=== PATIENT | female | born 1950 | race Caucasian/White ===

== ENCOUNTER 2019-09-04 03:16 | Inpatient (IN) ==
[2019-08-28 10:47] LABS: HEMATOCRIT 43.5 % (37.0-47.0); HEMOGLOBIN 14.8 g/dL (12.0-16.0); MCH 32.2 PG (27-31); MCV 94.6 FL (81-99); MPV 10.2 FL (7.4-10.4); RBC 4.6 XMIL (4.2-5.4); RDW 12.6 % (11.5-14.5); WBC 8.08 X1000 (4.8-10.8)
[2019-08-28 11:10] LABS: AGAP 11; BUN 13 mg/dL (8-22); CALCIUM 10.2 mg/dL (8.8-10.2); CHLORIDE 103 mmol/L (98-107); COSMO 285; CREATININE 0.7 mg/dL (0.5-0.9); ESTIMATED GFR > 60; GLUCOSE 96 mg/dL (70-104); POTASSIUM 4.3 mmol/L (3.5-5.1); SODIUM 143 mmol/L (136-145); TCO2 29 mmol/L (25-35)
--- NOTE | 2019-08-28 11:49 | EKG Report ---
Test Performed on : 08/28/2019 10:21:26 AM Test Reason : PAT Blood Pressure : / mmHG Vent. Rate : 073 BPM Atrial Rate : 073 BPM P-R Int : 152 ms QRS Dur : 074 ms QT Int : 378 ms P-R-T Axes : 056 060 052 degrees QTc Int : 416 ms Normal sinus rhythm. Normal ECG No previous ECGs available Confirmed by Kelsey ROMERO, [place] Childress ([id number]) on 08/29/2019 11:05:59 PM
[2019-09-04] MEDS ORDERED: XYLOCAINE-MPF 4% ONE (06:29)
[2019-09-04] MEDS ORDERED: ZOFRAN ONE (06:45)
[2019-09-04] MEDS ORDERED: NORCURON ONE (06:45)
[2019-09-04] MEDS ORDERED: QUELICIN (DOSE) ONE ×2 (06:45→09:33)
[2019-09-04] MEDS ORDERED: SODIUM CHLORIDE 0.9% 10 ML ONE ×2 (06:45→09:04)
[2019-09-04] MEDS ORDERED: DECADRON ONE ×2 (06:45→08:59)
[2019-09-04] MEDS ORDERED: ROBINUL ONE ×3 (06:45→06:47)
[2019-09-04] MEDS ORDERED: XYLOCAINE-MPF 2% ONE (06:45)
[2019-09-04] MEDS ORDERED: FENTANYL ONE (06:45)
[2019-09-04] MEDS ORDERED: DIPRIVAN 1% ONE (06:45)
[2019-09-04] MEDS ORDERED: ENTEREG ONE (06:46)
[2019-09-04] MEDS ORDERED: REGLAN ONE (06:46)
[2019-09-04] MEDS ORDERED: PEPCID ONE (06:46)
[2019-09-04] MEDS ORDERED: VALIUM ONE (06:47)
[2019-09-04] MEDS ORDERED: INVANZ 1 GM/NS 1 GM/50 ML IVPB ONE (06:47)
[2019-09-04] MEDS ORDERED: LR 1,000 ML ONE ×2 (06:47→07:04)
[2019-09-04] MEDS ORDERED: SENSORCAINE 0.5%-EPI 1:200,000 ONE (07:04)
[2019-09-04] MEDS ORDERED: VERSED ONE ×2 (07:15→07:22)
[2019-09-04] MEDS ORDERED: KETAMINE ONE (07:15)
[2019-09-04] MEDS ORDERED: NEO-SYNEPHRINE 1% NASAL SPRAY ONE (07:27)
[2019-09-04] MEDS ORDERED: NEO-SYNEPHRINE ONE (09:04)
[2019-09-04] MEDS ORDERED: NEOSTIGMINE ONE (09:22)
[2019-09-04] MEDS ORDERED: OFIRMEV 1000 MG/ISOTONIC SOLN 1,000 MG/100 ML BOTTLE ONE (10:45)
[2019-09-04] MEDS ORDERED: NS 1,000 ML ONE (10:45)
[2019-09-04 10:49] LABS: URINE SOURCE CATH
--- NOTE | 2019-09-04 11:07 | OPERATIVE NOTE ---
PROCEDURE DATE: 09/04/2019 PROCEDURE PERFORMED: Laparoscopic assisted right colectomy. SURGEON: Cruz Morales MD. ASSISTANTS: Humera and Mary Jo. PREOPERATIVE DIAGNOSIS: Villous adenoma right colon. POSTOPERATIVE DIAGNOSIS: Villous adenoma right colon. DESCRIPTION OF PROCEDURE: Satisfactory general endotracheal anesthesia was achieved. The abdomen was prepped and draped in a sterile fashion. We anesthetized the skin below the umbilicus, made a vertical incision, dissected down the fascia scored the fascia, and introduced 11 trocar. We insufflated through this trocar. Under direct visualization, we used 11 trocar in the mid epigastrium and a 5 trocar in the mid hypogastrium, and a 5 trocar in the right lower quadrant. We placed the patient in Trendelenburg, and turned her to the left. We then used the LigaSure to incised the white line of Toldt. Then, we progressed caudad to free up the terminal ilium and mobilized the terminal ilium. We then placed the patient in reverse Trendelenburg and then again continued along the white line of Toldt to the hepatic flexure. We then changed our laparoscope to the mid epigastric trocar, and then we mobilized the hepatic flexure, and brought the dissection all the way past the exposure of the duodenum. We then mobilized the right colon out of the retroperitoneum so that it would come on to the midline. We felt that it was adequately mobile at this point. Hemostasis was satisfactory. I then desufflated, and removed our trocars. We then marked the skin transversely in the right mid abdomen. We anesthetized the skin with 0.25 Marcaine with epinephrine, incised the skin, and carried our incision through the subcutaneous tissue. We incised the external oblique aponeurosis, and the external oblique muscle. We spread the internal oblique muscle, spread the transversus muscle, and then opened the peritoneum. We then placed a ring to keep the subcutaneous tissue protected. We delivered the right colon then out of the abdominal cavity with some of the terminal ilium out, and the right colon all the way to the transverse colon. We cleaned off the ileum and then stapled it with a MILENA 80 blue stapler. We cleaned off the transverse colon, and did the same thing with the MILENA 80. We then divided the mesentery with the ligature. We then were able to hand off the specimen with the ink portion right in the mid aspect of the specimen. The end of the ilium was then approximated [id number] to the transverse colon. We placed a 3-0 silk to keep those side by side. We then cut off the corners of the respective ends of the bowel, and introduced a MILENA 80 again, and did a [id number] stapled anastomosis. The open end of the bowel was then grasped with Allis and a TA-60 blue stapler was used to staple off the open end of the bowel. We then inverted the staple line with interrupted 3-0 silks in a Lembert fashion. We placed a 3-0 silk at the opposite end of the staple line as well. We changed gloves at this point, and rid ourselves of the contaminated instruments. We then also placed some 3-0 silks in the mesentery to approximate it once again. We reduced the anastomosis back into the abdominal cavity. We removed the wound protector. We then closed the peritoneum with a 2-0 Polysorb running. We allowed the transversus to reapproximate. We reapproximated the internal oblique with a running 2-0 Polysorb. We reapproximated the external oblique aponeurosis and fascia with 0 Polysorb [id number] stitches. We placed 3-0 Polysorb in the subcutaneous tissue. We reinserted our 11 trocars and two 5 trocars, and re-insufflated. We looked inside. The anastomosis was identified. Hemostasis was satisfactory. We were satisfied with the anastomosis. The stomach had been emptied with an OG tube. No other abnormalities were identified. We used a Norm-Misty wound closure for the epigastric trocar site. We desufflated, and removed our other trocars. We closed the fascia below the umbilicus under direct visualization with a 2-0 Polysorb fascial stitch. The skin was closed at each incision with 4-0 Polysorb subcuticular stitches. Sterile OpSite's were applied. She tolerated it well, and was sent to the recovery room in satisfactory condition. cc: MD Dr. Cecilio Sesay
[2019-09-04 11:12] LABS: BILIRUBIN URINE NEGATIVE (NEGATIVE); BLOOD URINE TRACE (NEGATIVE); COLOR STRAW; GLUCOSE URINE NEGATIVE (NEGATIVE); KETONE URINE NEGATIVE (NEGATIVE); LEUKOCYTES URINE NEGATIVE (NEGATIVE); NITRITE URINE NEGATIVE (NEGATIVE); PH URINE 6.5; PROTEIN URINE NEGATIVE (NEGATIVE); SP GRAVITY URINE 1.003; TURBIDITY URINE CLEAR (CLEAR); UR EPITHELIAL CELLS <10 /HPF (<10); URINE BACTERIA NEGATIVE /HPF; URINE RBC <10 /HPF (<10); URINE WBC <10 /HPF (<10); UROBILINOGEN URINE NORMAL (NORMAL)
[2019-09-04] MEDS ORDERED: NS 1,000 ML IV SCH (11:23)
[2019-09-04] MEDS: BUPRENEX IV PRN (16:35)
[2019-09-04] MEDS: OFIRMEV 1000 MG/ISOTONIC SOLN 1,000 MG/100 ML BOTTLE IV SCH ×2 (16:37→22:19)
[2019-09-04] MEDS: LOVENOX SUBQ SCH (16:37)
--- NOTE | 2019-09-04 21:17 | GENERAL SURGERY PROGRESS NOTE ---
DATE: 09/04/2019 It is 4:25 in the afternoon. She is doing generally well. She is comfortable. Her bandages are dry. Hemodynamics are good. She denies nausea. We will allow her to have ice chips. cc: Cruz Morales MD
[2019-09-04] MEDS: PERIDEX MT SCH (22:19)
[2019-09-05] MEDS: OFIRMEV 1000 MG/ISOTONIC SOLN 1,000 MG/100 ML BOTTLE IV SCH ×2 (05:09→12:37)
[2019-09-05 06:43] LABS: HEMATOCRIT 35.8 % (37.0-47.0); HEMOGLOBIN 12.2 g/dL (12.0-16.0); LYMPH# 0.43 X1000 (1.2-3.4); LYMPH% 3.4 % (20.5-51.1); MCH 32.5 PG (27-31); MCHC 34.1 g/dL (33-37); MCV 95.5 FL (81-99); MONO# 0.51 X1000 (0.11-0.59); MPV 11.1 FL (7.4-10.4); NEUT# 11.66 X1000 (1.4-6.5); NEUT% 92.6 % (42.2-75.2); PLT 236 X1000 (130-400); RBC 3.75 XMIL (4.2-5.4); RDW 12.8 % (11.5-14.5)
[2019-09-05 06:51] LABS: AGAP 9; BUN 9 mg/dL (8-22); CALCIUM 8.4 mg/dL (8.8-10.2); CHLORIDE 106 mmol/L (98-107); COSMO 277; CREATININE 0.5 mg/dL (0.5-0.9); ESTIMATED GFR > 60; GLUCOSE 137 mg/dL (70-104); POTASSIUM 4.1 mmol/L (3.5-5.1); SODIUM 138 mmol/L (136-145); TCO2 23 mmol/L (25-35)
[2019-09-05] MEDS ORDERED: NS 1,000 ML IV SCH (07:49)
--- NOTE | 2019-09-05 08:37 | GENERAL SURGERY PROGRESS NOTE ---
DATE: 09/05/2019 She is postoperative day 1 after laparoscopic assisted right colectomy. She is afebrile, heart rate 84, blood pressure 104/49. Her pain is negligible. She denies nausea. Today we will remove her Quinn catheter, give her clear liquids and decrease her IV rate. She is to get up. cc: Cruz Morales MD
[2019-09-05] MEDS: PERIDEX MT SCH ×2 (09:40→21:09)
[2019-09-05] MEDS: COZAAR PO SCH (09:40)
[2019-09-05] MEDS: LOVENOX SUBQ SCH (12:37)
[2019-09-05] MEDS: ULTRAM PO PRN (21:07)
[2019-09-05] MEDS: PRAVACHOL PO SCH (21:08)
[2019-09-06] MEDS: COZAAR PO SCH (10:14)
[2019-09-06] MEDS: PERIDEX MT SCH ×2 (10:15→20:36)
[2019-09-06] MEDS: NS 1,000 ML IV SCH (13:13)
[2019-09-06] MEDS: LOVENOX SUBQ SCH (13:59)
[2019-09-06] MEDS: ULTRAM PO PRN (20:35)
[2019-09-06] MEDS: PRAVACHOL PO SCH (20:36)
[2019-09-07] MEDS: BUPRENEX IV PRN (08:51)
[2019-09-07] MEDS: PERIDEX MT SCH ×2 (08:52→21:02)
[2019-09-07] MEDS: COZAAR PO SCH ×2 (08:52→08:55)
[2019-09-07] MEDS: ZOFRAN IV PRN (13:00)
--- NOTE | 2019-09-07 13:21 | Diag Imaging Result Doc PS360 ---
FLAT/UPRIGHT ABD/1 VIEW CHEST - 09/07/2019 INDICATION: nausea post op TECHNIQUE: COMPARISON: None FINDINGS: The chest is clear. There are surgical suture lines in the right side of the abdomen. There are several abnormally gas-distended loops of bowel. Some of these in the epigastrium may well be small bowel although these are indeterminate. If so, this would be highly obstructed. There are air-fluid levels on the upright. No free air. There is some trace rectal and distal colon gas. IMPRESSION: Findings suspicious for high-grade small bowel obstruction. Electronically signed by Nj Fraga 09/07/2019 1:18 PM
[2019-09-07] MEDS: LOVENOX SUBQ SCH (13:39)
--- NOTE | 2019-09-07 15:21 | GENERAL SURGERY PROGRESS NOTE ---
DATE: 09/07/2019 SUBJECTIVE: Ms. Rich is somewhat nauseated today. She has had a little bit of bloody bowel movements, passed a little bit of flatus, but does report a cramp in her abdomen in addition to some nausea. She is not really hungry. OBJECTIVE: Vital signs: She is afebrile, heart rate 77, blood pressure 97/41. Abdomen: Mildly distended and tympanitic. PLAN: Is to get a flat and upright of her abdomen. I do not think she is quite ready for discharge. We will get her something for nausea. cc: Cruz Morales MD
[2019-09-07] MEDS: PRAVACHOL PO SCH (21:02)
[2019-09-07] MEDS: NS 1,000 ML IV SCH (21:02)
[2019-09-07] MEDS: ULTRAM PO PRN (21:05)
[2019-09-08 07:27] LABS: BASO# 0.02 X1000 (0.0-0.2); BASO% 0.2 % (0.0-0.8); EOS# 0.15 X1000 (0.0-0.7); EOS% 1.3 % (0.0-10.0); HEMATOCRIT 36.8 % (37.0-47.0); HEMOGLOBIN 12.3 g/dL (12.0-16.0); LYMPH# 1.64 X1000 (1.2-3.4); MCH 32.3 PG (27-31); MCHC 33.4 g/dL (33-37); MCV 96.6 FL (81-99); MONO# 0.99 X1000 (0.11-0.59); MONO% 8.4 % (1.7-9.3); MPV 10.8 FL (7.4-10.4); NEUT# 8.93 X1000 (1.4-6.5); NEUT% 76.1 % (42.2-75.2); PLT 301 X1000 (130-400); RBC 3.81 XMIL (4.2-5.4); RDW 13.3 % (11.5-14.5); WBC 11.73 X1000 (4.8-10.8)
--- NOTE | 2019-09-08 08:15 | Diag Imaging Result Doc PS360 ---
EXAM: FLAT/UPRIGHT ABD/1 VIEW CHEST 09/08/2019 HISTORY: post op n and v TECHNIQUE: Flat and upright abdomen with PA chest COMMENT: There is colonic and small bowel gas with multiple air-fluid levels. Some gas is seen in the rectum. There are suture lines in the right abdomen. The stomach is not distended. There is some atelectasis in the left lower lobe and there may be small bilateral pleural effusions. Compared to the previous chest radiograph of 09/07/2019 the pleural fluid collection on the right appears larger. The atelectasis was present previously. The degree of gaseous distention of the colon has diminished since the previous study. IMPRESSION: Improved ileus. Worsened right pleural effusion. Electronically signed by Rigoberto Ndiaye 09/08/2019 8:12 AM
[2019-09-08] MEDS: NS 1,000 ML IV SCH ×3 (08:46→21:49)
[2019-09-08] MEDS: ZOFRAN IV PRN (08:46)
[2019-09-08] MEDS: ULTRAM PO PRN ×2 (08:46→16:38)
[2019-09-08] MEDS: PERIDEX MT SCH ×2 (08:47→21:48)
[2019-09-08] MEDS: COZAAR PO SCH (08:47)
--- NOTE | 2019-09-08 10:59 | GENERAL SURGERY PROGRESS NOTE ---
DATE: 09/08/2019 SUBJECTIVE: Ms. Rich had a little bloody bowel movement. Her hemoglobin is stable, however hemodynamics are stable. Her nausea is better today. Her x-ray does not really show significant improvement except there is air in the colon now. PLAN: The plan will be to increase her IV rate to 80. Will recheck her hemoglobin tomorrow. I will stop her Lovenox. Will advance her diet and will see when she is ready to go home over the weekend possibly. I have discussed with her. Also, her pathology has come back as malignant but her nodes were negative, and I discussed that with her son. cc: Cruz Morales MD
[2019-09-08] MEDS: PRAVACHOL PO SCH (21:48)
[2019-09-09 07:21] LABS: BASO# 0.02 X1000 (0.0-0.2); BASO% 0.3 % (0.0-0.8); EOS# 0.15 X1000 (0.0-0.7); EOS% 2.1 % (0.0-10.0); HEMATOCRIT 35.7 % (37.0-47.0); HEMOGLOBIN 11.5 g/dL (12.0-16.0); IMM GRAN# 0.05 X1000 (0.0-0.04); IMM GRAN% 0.7 % (0.0-0.5); LYMPH# 1.78 X1000 (1.2-3.4); MCH 31.3 PG (27-31); MCHC 32.2 g/dL (33-37); MONO# 0.62 X1000 (0.11-0.59); MONO% 8.7 % (1.7-9.3); NEUT# 4.51 X1000 (1.4-6.5); NEUT% 63.2 % (42.2-75.2); PLT 278 X1000 (130-400); RBC 3.68 XMIL (4.2-5.4); WBC 7.13 X1000 (4.8-10.8)
[2019-09-09 07:39] LABS: AGAP 9; BUN 8 mg/dL (8-22); CALCIUM 7.5 mg/dL (8.8-10.2); CHLORIDE 108 mmol/L (98-107); COSMO 282; CREATININE 0.5 mg/dL (0.5-0.9); ESTIMATED GFR > 60; GLUCOSE 114 mg/dL (70-104); POTASSIUM 4.1 mmol/L (3.5-5.1); SODIUM 142 mmol/L (136-145); TCO2 25 mmol/L (25-35)
--- NOTE | 2019-09-09 08:07 | Diag Imaging Result Doc PS360 ---
EXAM: FLAT/UPRIGHT ABD/1 VIEW CHEST HISTORY: ileus TECHNIQUE: Flat and upright with chest, four views COMPARISON: 09/08/2019 FINDINGS: Tiny pleural effusions. No cardiomegaly. No consolidation. No free air beneath the diaphragm. There are overly distended small bowel loops filled with air. The diameter approaches 4 cm. There are sutures in the right lower quadrant. Air is present in the transverse colon. No organomegaly. IMPRESSION: Ileus versus partial distal obstruction. No interval improvement. Electronically signed by Franklin Shaw 09/09/2019 8:05 AM
[2019-09-09] MEDS: COZAAR PO SCH (09:53)
[2019-09-09] MEDS: PERIDEX MT SCH (09:53)
[2019-09-09] MEDS: NS 1,000 ML IV SCH (09:56)
[2019-09-09 11:22] VITALS: BP 111/57
--- NOTE | 2019-09-09 12:15 | GENERAL SURGERY PROGRESS NOTE ---
DATE: 09/09/2019 SUBJECTIVE: The patient is doing well. She has had lots of flatus and some stool. She is tolerating her diet. She has had no significant nausea, vomiting, chest pain, shortness of breath or abdominal pain. OBJECTIVE: She is afebrile. Vital signs are stable. In general, she is awake, alert, and oriented x3. No acute distress. GI is soft and nondistended. Good bowel sounds. Incision is clean, dry, and intact. LABORATORY: Hemoglobin 11 and hematocrit 35. ASSESSMENT/PLAN: A 69-year-old female status post laparoscopic right hemicolectomy. She is doing well. We will discharge her home. Of note, I did review her abdominal x-ray which shows some dilated small bowel. However, there is a lot of gas in the distal colon and rectum. Clinically, she is feeling better. She will follow up with Dr. Morales this week. cc: MD Cruz Jauregui MD
--- NOTE | 2019-09-13 10:42 | DISCHARGE SUMMARY ---
ADMISSION DATE: 09/04/2019 DISCHARGE DATE: 09/09/2019 PRIMARY DISCHARGE DIAGNOSIS: Carcinoma of the right colon, extending into the muscularis, but not into the subcutaneous fat. Thirteen lymph nodes were negative. This is stage II. PRIMARY PROCEDURE: Laparoscopic-assisted right colectomy. HISTORY: This is a pleasant, 69-year-old, who had a lesion noted in her right colon on a routine colonoscopy. It appeared to be a villous lesion. She was admitted for resection. Following her outpatient prep, she came in on 09/04/2019 and underwent the above-noted procedure. Postoperatively, she did generally well. On 09/07/2019, she did have a little bit of nausea. We had started her on liquids just a little bit, and we gave her something to treat her nausea. Over the course of her stay, she developed some bleeding as well out her GI tract, and once we stopped the Lovenox, this resolved. Her x-ray suggested an ileus, and we gave her Reglan to treat that. By 09/09/2019, however, she was tolerating food, and her bowels had moved. She was passing flatus. Her abdomen was softer, and it was felt she could be discharged home. She will return to the office in followup in a week to look at her wounds. She was given tramadol for pain. She will resume her usual medicines. cc: MD Francisco Sesay MD
[2019-09-15] MEDS ORDERED: BONIVA PO SCH (10:00)
== END 2019-09-09 13:18 | disposition home or self-care (01) | DRG 330 ==
LOC: SURHOLD 03:16 → 4N 07:49
PROVIDERS: ADMIT Surgery; ATTEND Surgery